=== PATIENT | male | born 1970 | race Caucasian/White ===

== ENCOUNTER 2020-11-21 13:27 | Emergency (ER) | payer BC, OTHER ==
[2020-11-21 13:33] VITALS: TEMP 97.9
--- NOTE | 2020-11-21 14:20 | XR ---
EXAMINATION TYPE: XR chest 2V DATE OF EXAM: 11/21/2020 COMPARISON: 05/12/12 HISTORY: Chest pain TECHNIQUE: Frontal and lateral views of the chest are obtained. FINDINGS: There is no focal air space opacity. No evidence for pneumothorax. No pleural effusion. The cardiac silhouette size is within normal limits. The osseous structures are grossly intact. IMPRESSION: 1. No acute cardiopulmonary process.
[2020-11-21 14:22] LABS: Basophils % (A) 0 %; Eosinophils % (A) 0 %; HCT 47.1 % (39.0-53.0); HGB 15.5 gm/dL (13.0-17.5); Lymphocytes # (A) 1.5 k/uL (1.0-4.8); Lymphocytes % (A) 18 %; MCH 29.2 pg (25.0-35.0); MCHC 32.9 g/dL (31.0-37.0); MCV 88.8 fL (80.0-100.0); Mean Platelet Volume 6.1; Monocytes # (A) 0.4 k/uL (0-1.0); Monocytes % (A) 5 %; Neutrophils # (A) 6.1 k/uL (1.3-7.7); Neutrophils % (A) 75 %; Platelet Count 242 k/uL (150-450); RBC 5.31 m/uL (4.30-5.90); RDW 13.3 % (11.5-15.5); WBC 8.1 k/uL (3.8-10.6)
[2020-11-21 14:32] LABS: Albumin 4.5 g/dL (3.5-5.0); Calcium 9.8 mg/dL (8.4-10.2); Magnesium 1.8 mg/dL (1.6-2.3); Total Bilirubin 0.9 mg/dL (0.2-1.3); Total Protein 7.6 g/dL (6.3-8.2)
[2020-11-21 14:37] LABS: INR 1.2 (<1.2); Partial Thromboplastin Time 25.1 sec (22.0-30.0); Prothrombin Time 12.2 sec (9.0-12.0)
--- NOTE | 2020-11-21 14:49 | ED ---
Weakness HPI <Arnulfo Cortes - Last Filed: 11/21/20 16:50> - General Source: patient Mode of arrival: ambulatory Limitations: no limitations <Isha Mendes - Last Filed: 12/01/20 07:02> - General Chief complaint: Weakness Stated complaint: tinlgling in legs and arms Time Seen by Provider: 11/21/20 13:30 - History of Present Illness Initial comments: Patient is a 50-year-old male with past history of PE/DVT on Anticoagulation who presents to the emergency department with multiple complaints. Patient states that he doesn't feel himself. States he's had increased numbness and tingling in his bilateral hands and feet. Symptoms started approximately 8 days ago after he received the incident Bharath X seen. States he's had diffuse muscle aches and decreased energy. He denies any shortness of breath. Admits to nausea without vomiting. No abdominal pain. No chest pain. Denies headaches. No weakness in his arms or legs. No other alleviating, Perceptin or modifying factors (Isha Mendes) - Related Data Home Medications Medication Instructions Recorded Confirmed Levothyroxine Sodium [Synthroid] 100 mcg PO DAILY 09/21/14 11/21/20 Melatonin 5 mg PO HS PRN 11/21/20 11/21/20 Vitamin C(Unknown) 1 tab PO DAILY 11/21/20 11/21/20 Vitamin D3(Unknown) 1 tab PO DAILY 11/21/20 11/21/20 Previous Rx's Medication Instructions Recorded Rivaroxaban [Xarelto] 20 mg PO DAILY #30 tab 09/25/14 ALPRAZolam [Xanax] 0.25 mg PO HS PRN 2 Days #2 tab 11/21/20 Allergies Allergy/AdvReac Type Severity Reaction Status Date / Time Penicillins Allergy Rash/Hives Verified 11/21/20 14:38 methocarbamol [From Robaxin] AdvReac INSOMNIA Verified 11/21/20 14:38 Review of Systems ROS Other: All systems not noted in ROS Statement are negative. <Arnulfo Cortes - Last Filed: 11/21/20 16:50> ROS Other: All systems not noted in ROS Statement are negative. <Isha Mendes - Last Filed: 12/01/20 07:02> ROS Statement: Those systems with pertinent positive or pertinent negative responses have been documented in the HPI. Past Medical History Past Medical History: Osteoarthritis (OA), Pneumonia, Thyroid Disorder Additional Past Medical History / Comment(s): back ruptured disc, sciatica pains, 2-20-15 PE, LT LEG DVT, hypothyroidism, obesity, osteoarthritis, obesity, postphlebitic syndrome in the left lower extremity, COVID 19 08/2020. History of Any Multi-Drug Resistant Organisms: None Reported Past Surgical History: Orthopedic Surgery Additional Past Surgical History / Comment(s): left knee LT MENISCUS SX 2011, right shoulder REPAIR OF A TEAR Past Anesthesia/Blood Transfusion Reactions: No Reported Reaction Past Psychological History: No Psychological Hx Reported Smoking Status: Never smoker Past Alcohol Use History: None Reported Past Drug Use History: None Reported - Past Family History Father Family Medical History: Cancer Additional Family Medical History / Comment(s): LUNG/BONE CA Mother Family Medical History: Hypertension <Isha Mendes - Last Filed: 12/01/20 07:02> General Exam Limitations: no limitations General appearance: alert, in no apparent distress Head exam: Present: atraumatic, normocephalic, normal inspection Eye exam: Present: normal appearance, PERRL, EOMI. Absent: scleral icterus, conjunctival injection, periorbital swelling ENT exam: Present: normal exam, mucous membranes moist Neck exam: Present: normal inspection. Absent: tenderness, meningismus, lymphadenopathy Respiratory exam: Present: normal lung sounds bilaterally. Absent: respiratory distress, wheezes, rales, rhonchi, stridor Cardiovascular Exam: Present: normal rhythm, tachycardia, normal heart sounds. Absent: systolic murmur, diastolic murmur, rubs, gallop, clicks GI/Abdominal exam: Present: soft, normal bowel sounds. Absent: distended, tenderness, guarding, rebound, rigid Extremities exam: Present: normal inspection, full ROM, normal capillary refill. Absent: tenderness, pedal edema, joint swelling, calf tenderness Back exam: Present: normal inspection Neurological exam: Present: alert, oriented X3, CN II-XII intact Psychiatric exam: Present: normal affect, normal mood Skin exam: Present: warm, dry, intact, normal color. Absent: rash <Isha Mendes - Last Filed: 12/01/20 07:02> Course Vital Signs 11/21/20 11/21/20 11/21/20 13:29 14:03 15:15 Temperature 97.9 F 97.9 F Pulse Rate 104 H 81 Respiratory 18 16 16 Rate Blood Pressure 134/91 144/93 O2 Sat by Pulse 97 97 Oximetry 11/21/20 16:49 Temperature Pulse Rate 74 Respiratory 18 Rate Blood Pressure 125/73 O2 Sat by Pulse 94 L Oximetry EKG Findings - EKG Comments: EKG Findings:: EKG demonstrates normal sinus rhythm with a ventricular rate of 93. GA interval 164. QRS 88. QTC of 447. No acute ST segment elevations or depressions concerning for ischemic changes <Isha Mendes - Last Filed: 12/01/20 07:02> Medical Decision Making - Lab Data Result diagrams: 11/21/20 14:04 11/21/20 14:04 <Arnulfo Cortes - Last Filed: 11/21/20 16:50> - Lab Data Result diagrams: 11/21/20 14:04 11/21/20 14:04 <Isha Mendes - Last Filed: 12/01/20 07:02> - Medical Decision Making Patient care is signed out to me by previous shift physician Dr. Arredondo. Briefly, patient is a 50-year-old male presents today with feelings of decreased exercise tolerance, shakiness and poor appetite. Patient states that his symptoms remind him of when he got Covid earlier this year. He did receive vaccination approximately 8 days ago. Vital signs his blood labs are unremarkable. Labs. Be baseline. He is evaluated bedside physical examination is benign. Plan at sign out was to follow-up with pending urine study and Covid test.Urinalysis shows 2+ ketones rotavirus is negative. There is concern that perhaps patient's symptoms are from dehydration is told to hydrate himself. Patient also requesting some anxiolytic medication. Is given prescription for 2 pills of Xanax. PRN anxiety (Arnulfo Cortes) Upon arrival the patient's placed into room 16. A thorough history and physical exam is performed. Laboratory studies were conducted. Chest x-rays performed. Patient has no calf pain and swelling. Laboratory studies are reviewed. INR 1.2. D-dimer 0.28. Creatinine 1.27. CK 218. Chest x-ray demonstrates no acute process. Patient does have normalization of his heart rate without any intervention. Discuss results with the patient. We will send a Covid swab and urinalysis. Currently waiting studies at this time. Patient will be signed out to Dr. Cotres. (Isha Mendes) - Lab Data Lab Results 11/21/20 11/21/20 11/21/20 Range/Units 14:04 14:04 14:04 WBC 8.1 (3.8-10.6) k/uL RBC 5.31 (4.30-5.90) m/uL Hgb 15.5 (13.0-17.5) gm/dL Hct 47.1 (39.0-53.0) % MCV 88.8 (80.0-100.0) fL MCH 29.2 (25.0-35.0) pg MCHC 32.9 (31.0-37.0) g/dL RDW 13.3 (11.5-15.5) % Plt Count 242 (150-450) k/uL MPV 6.1 Neutrophils % 75 % Lymphocytes % 18 % Monocytes % 5 % Eosinophils % 0 % Basophils % 0 % Neutrophils # 6.1 (1.3-7.7) k/uL Lymphocytes # 1.5 (1.0-4.8) k/uL Monocytes # 0.4 (0-1.0) k/uL Eosinophils # 0.0 (0-0.7) k/uL Basophils # 0.0 (0-0.2) k/uL PT 12.2 H (9.0-12.0) sec INR 1.2 H (<1.2) APTT 25.1 (22.0-30.0) sec D-Dimer 0.28 (<0.60) mg/L FEU Sodium 135 L (137-145) mmol/L Potassium 4.0 (3.5-5.1) mmol/L Chloride 102 (98-107) mmol/L Carbon Dioxide 26 (22-30) mmol/L Anion Gap 7 mmol/L BUN 13 (9-20) mg/dL Creatinine 1.27 H (0.66-1.25) mg/dL Est GFR (CKD-EPI)AfAm 76 (>60 ml/min/1.73 sqM) Est GFR (CKD-EPI)NonAf 66 (>60 ml/min/1.73 sqM) Glucose 95 (74-99) mg/dL Plasma Lactic Acid Leonel (0.7-2.0) mmol/L Calcium 9.8 (8.4-10.2) mg/dL Magnesium 1.8 (1.6-2.3) mg/dL Total Bilirubin 0.9 (0.2-1.3) mg/dL AST 34 (17-59) U/L ALT 22 (4-49) U/L Alkaline Phosphatase 67 (38-126) U/L Creatine Kinase 218 H (55-170) U/L Troponin I (0.000-0.034) ng/mL NT-Pro-B Natriuret Pep pg/mL Total Protein 7.6 (6.3-8.2) g/dL Albumin 4.5 (3.5-5.0) g/dL TSH 0.853 (0.465-4.680) mIU/L Urine Color Urine Appearance (Clear) Urine pH (5.0-8.0) Ur Specific [place] (1.001-1.035) Urine Protein (Negative) Urine Glucose (UA) (Negative) Urine Ketones (Negative) Urine Blood (Negative) Urine Nitrite (Negative) Urine Bilirubin (Negative) Urine Urobilinogen (<2.0) mg/dL Ur Leukocyte Esterase (Negative) Urine RBC (0-5) /hpf Urine WBC (0-5) /hpf Hyaline Casts (0-2) /lpf Urine Mucus (None) /hpf Coronavirus (PCR) (Not Detectd) 11/21/20 11/21/20 11/21/20 Range/Units 14:04 14:04 14:04 WBC (3.8-10.6) k/uL RBC (4.30-5.90) m/uL Hgb (13.0-17.5) gm/dL Hct (39.0-53.0) % MCV (80.0-100.0) fL MCH (25.0-35.0) pg MCHC (31.0-37.0) g/dL RDW (11.5-15.5) % Plt Count (150-450) k/uL MPV Neutrophils % % Lymphocytes % % Monocytes % % Eosinophils % % Basophils % % Neutrophils # (1.3-7.7) k/uL Lymphocytes # (1.0-4.8) k/uL Monocytes # (0-1.0) k/uL Eosinophils # (0-0.7) k/uL Basophils # (0-0.2) k/uL PT (9.0-12.0) sec INR (<1.2) APTT (22.0-30.0) sec D-Dimer (<0.60) mg/L FEU Sodium (137-145) mmol/L Potassium (3.5-5.1) mmol/L Chloride (98-107) mmol/L Carbon Dioxide (22-30) mmol/L Anion Gap mmol/L BUN (9-20) mg/dL Creatinine (0.66-1.25) mg/dL Est GFR (CKD-EPI)AfAm (>60 ml/min/1.73 sqM) Est GFR (CKD-EPI)NonAf (>60 ml/min/1.73 sqM) Glucose (74-99) mg/dL Plasma Lactic Acid Leonel 1.1 (0.7-2.0) mmol/L Calcium (8.4-10.2) mg/dL Magnesium (1.6-2.3) mg/dL Total Bilirubin (0.2-1.3) mg/dL AST (17-59) U/L ALT (4-49) U/L Alkaline Phosphatase (38-126) U/L Creatine Kinase (55-170) U/L Troponin I <0.012 (0.000-0.034) ng/mL NT-Pro-B Natriuret Pep 22 pg/mL Total Protein (6.3-8.2) g/dL Albumin (3.5-5.0) g/dL TSH (0.465-4.680) mIU/L Urine Color Urine Appearance (Clear) Urine pH (5.0-8.0) Ur Specific [place] (1.001-1.035) Urine Protein (Negative) Urine Glucose (UA) (Negative) Urine Ketones (Negative) Urine Blood (Negative) Urine Nitrite (Negative) Urine Bilirubin (Negative) Urine Urobilinogen (<2.0) mg/dL Ur Leukocyte Esterase (Negative) Urine RBC (0-5) /hpf Urine WBC (0-5) /hpf Hyaline Casts (0-2) /lpf Urine Mucus (None) /hpf Coronavirus (PCR) (Not Detectd) 11/21/20 11/21/20 Range/Units 15:11 15:11 WBC (3.8-10.6) k/uL RBC (4.30-5.90) m/uL Hgb (13.0-17.5) gm/dL Hct (39.0-53.0) % MCV (80.0-100.0) fL MCH (25.0-35.0) pg MCHC (31.0-37.0) g/dL RDW (11.5-15.5) % Plt Count (150-450) k/uL MPV Neutrophils % % Lymphocytes % % Monocytes % % Eosinophils % % Basophils % % Neutrophils # (1.3-7.7) k/uL Lymphocytes # (1.0-4.8) k/uL Monocytes # (0-1.0) k/uL Eosinophils # (0-0.7) k/uL Basophils # (0-0.2) k/uL PT (9.0-12.0) sec INR (<1.2) APTT (22.0-30.0) sec D-Dimer (<0.60) mg/L FEU Sodium (137-145) mmol/L Potassium (3.5-5.1) mmol/L Chloride (98-107) mmol/L Carbon Dioxide (22-30) mmol/L Anion Gap mmol/L BUN (9-20) mg/dL Creatinine (0.66-1.25) mg/dL Est GFR (CKD-EPI)AfAm (>60 ml/min/1.73 sqM) Est GFR (CKD-EPI)NonAf (>60 ml/min/1.73 sqM) Glucose (74-99) mg/dL Plasma Lactic Acid Leonel (0.7-2.0) mmol/L Calcium (8.4-10.2) mg/dL Magnesium (1.6-2.3) mg/dL Total Bilirubin (0.2-1.3) mg/dL AST (17-59) U/L ALT (4-49) U/L Alkaline Phosphatase (38-126) U/L Creatine Kinase (55-170) U/L Troponin I (0.000-0.034) ng/mL NT-Pro-B Natriuret Pep pg/mL Total Protein (6.3-8.2) g/dL Albumin (3.5-5.0) g/dL TSH (0.465-4.680) mIU/L Urine Color Yellow Urine Appearance Clear (Clear) Urine pH 6.0 (5.0-8.0) Ur Specific [place] 1.033 (1.001-1.035) Urine Protein 1+ H (Negative) Urine Glucose (UA) Negative (Negative) Urine Ketones 2+ H (Negative) Urine Blood Negative (Negative) Urine Nitrite Negative (Negative) Urine Bilirubin Negative (Negative) Urine Urobilinogen <2.0 (<2.0) mg/dL Ur Leukocyte Esterase Negative (Negative) Urine RBC 2 (0-5) /hpf Urine WBC 1 (0-5) /hpf Hyaline Casts 1 (0-2) /lpf Urine Mucus Few H (None) /hpf Coronavirus (PCR) Not Detected (Not Detectd) Disposition Is patient prescribed a controlled substance at d/c from ED?: Yes If prescribed controlled substance>3 days was MAPS reviewed?: Prescribed <3 Days Time of Disposition: 16:53 <Arnulfo Cortes - Last Filed: 11/21/20 16:50> Is patient prescribed a controlled substance at d/c from ED?: No <Isha Mendes - Last Filed: 12/01/20 07:02> Clinical Impression: Myalgia after COVID-19 vaccination, Malaise and fatigue Disposition: HOME SELF-CARE Condition: Stable Instructions (If sedation given, give patient instructions): Fatigue (ED) Additional Instructions: Please follow up with Dr. Kim for further testing. Return to the ED for any new or worsening symptoms. Prescriptions: ALPRAZolam [Xanax] 0.25 mg PO HS PRN 2 Days #2 tab PRN Reason: Anxiety Referrals: Sean Kim MD [Primary Care Provider] - 1-2 days
[2020-11-21 16:25] LABS: Appearance,Urine Clear (Clear); Bilirubin,Urine Negative (Negative); Blood,Urine Negative (Negative); Color,Urine Yellow; Glucose,Urine (UA) Negative (Negative); Hyaline Casts,Urine 1 /lpf (0-2); Ketones,Urine 2+ (Negative); Leukocyte Esterase,Urine Negative (Negative); Mucus,Urine Few /hpf; Nitrite,Urine Negative (Negative); Protein,Urine 1+ (Negative); RBC,Urine 2 /hpf (0-5); Specific Gravity,Urine 1.033 (1.001-1.035); Urobilinogen,Urine <2.0 mg/dL (<2.0); WBC,Urine 1 /hpf (0-5)
[2020-11-21 16:52] VITALS: BP 125/73; PULSE 74; RESP 18
== END 2020-11-21 16:55 | disposition home or self-care (01) ==
LOC: EC 13:27
DX: M79.10 Myalgia, unspecified site (principal); R53.81 Other malaise; R53.83 Other fatigue; T50.B95A Adverse effect of other viral vaccines, initial encounter; E03.9 Hypothyroidism, unspecified; E66.9 Obesity, unspecified; Z68.39 Body mass index [BMI] 39.0-39.9, adult; Z79.890 Hormone replacement therapy; Z88.0 Allergy status to penicillin; Z88.8 Allergy status to other drugs, medicaments and biological substances; Z86.711 Personal history of pulmonary embolism; Z86.718 Personal history of other venous thrombosis and embolism
CPT/HCPCS: 36415; 71046; 80053; 81001; 82550; 83605; 83735; 83880; 84443; 84484; 85025; 85379; 85610; 85730; 87635; 93005; 99285

== ENCOUNTER → 2020-11-22 | Outpatient (CLI) | payer BC ==
--- NOTE | 2020-11-22 15:49 | XR ---
EXAMINATION TYPE: XR abdomen complete w decub DATE OF EXAM: 11/22/2020 HISTORY: Pain. Technique: 4 views of the abdomen are submitted. Comparison: None. Findings: There is no convincing evidence of pneumoperitoneum. The Bowel gas pattern is nonspecific and nonobstructive. No sizable air-fluid levels are seen. No mass effects are noted. No renal calcifications are identified. IMPRESSION: 1. Nonspecific nonobstructive bowel gas pattern
== END | disposition home or self-care (01) ==
LOC: RADXRMAIN 15:05
PROVIDERS: ATTEND Nurse Practitioner
DX: R10.9 Unspecified abdominal pain (principal)
CPT/HCPCS: 74021

== ENCOUNTER → 2020-11-27 | Outpatient (CLI) | payer BC ==
--- NOTE | 2020-11-27 13:56 | XR ---
EXAMINATION TYPE: XR chest 2V DATE OF EXAM: 11/27/2020 COMPARISON: Chest x-ray 6 days ago HISTORY: Edema and dyspnea. TECHNIQUE: Frontal and lateral views of the chest are obtained. FINDINGS: There is no suspicious new focal air space opacity, pleural effusion, or pneumothorax seen . The cardiac silhouette size is stable and within normal limits. The osseous structures are intac t. IMPRESSION: No acute process. No significant change from prior.
--- NOTE | 2020-11-27 14:39 | US ---
EXAMINATION TYPE: US venous doppler duplex LE BI DATE OF EXAM: 11/27/2020 2:30 PM COMPARISON: For 1116 CLINICAL HISTORY: R60 edema,R06.09 Dyspenia. Edema hx of dvt on blood thinners. SIDE PERFORMED: Bilateral TECHNIQUE: The lower extremity deep venous system is examined utilizing real time linear array sonog anant with graded compression, doppler sonography and color-flow sonography. VESSELS IMAGED: Common Femoral Vein Deep Femoral Vein Greater Saphenous Vein * Femoral Vein Popliteal Vein Small Saphenous Vein * Proximal Calf Veins (* superficial vessels) Right Leg: Negative for DVT Left Leg: Negative for DVT IMPRESSION: 1. No diagnostic evidence of acute DVT.
== END | disposition home or self-care (01) ==
LOC: RADUSWWP 13:31
PROVIDERS: ATTEND Family Medicine
DX: R60.0 Localized edema (principal); R06.09 Other forms of dyspnea
CPT/HCPCS: 71046; 85379; 85652; 86140; 93970

== ENCOUNTER → 2020-11-27 | Outpatient (CLI) | payer BC ==
--- NOTE | 2020-11-27 16:54 | CT ---
EXAMINATION TYPE: CT angio chest DATE OF EXAM: 11/27/2020 COMPARISON: 11/10/2015 HISTORY: SOB. hx of PE. CT DLP: 528 mGycm Automated exposure control for dose reduction was used. CONTRAST: Performed with IV Contrast, patient injected with 70cc mL of Isovue 370. Images were obtained from the thoracic inlet to the diaphragm with IV contrast. There are 3-D post pr ocessed images. The lungs are clear of infiltrate. There is no pleural effusion. Heart size is normal. There is no pe ricardial effusion. There is no mediastinal adenopathy. There are no hilar masses. There is normal contrast opacification of the pulmonary arteries. There are no filling defects. Thoracic aorta is intact. There is no aneur ysm or dissection. The thoracic spine is intact. There is no compression fracture. Sternum is intact. Upper abdominal so ft tissues appear normal. IMPRESSION: Negative exam. No evidence of pulmonary embolism.
== END | disposition home or self-care (01) ==
LOC: RADCTMAIN 15:54
PROVIDERS: ATTEND Family Medicine
DX: R06.09 Other forms of dyspnea (principal)
CPT/HCPCS: 71275; Q9967

== ENCOUNTER 2022-05-03 22:37 | Emergency (ER) | payer BC ==
[2022-05-03 22:42] VITALS: RESP 18; TEMP 97.9
--- NOTE | 2022-05-03 22:45 | ED ---
General Adult HPI - General Chief complaint: ENT Stated complaint: Food stuck, JOELLE Time Seen by Provider: 05/03/22 22:43 Source: patient Mode of arrival: wheelchair Limitations: no limitations - History of Present Illness Initial comments: Patient presents to the ED with his for evaluation. Patient states that he was eating some tortilla chips and phan dip about an hour ago when he felt it get stuck in his throat. Patient states that he has had a throat foreign body sensation since then. Patient states that he feels that the food bolus has mo alfonso a few times. Patient states that he forced himself to vomit by sticking a toothbrush into his throat, and he states that he vomited up what ate earlier today. Patient also states that he has been drinking lots of water without any difficulty, but his throat foreign body sensation persists. Patient admits to having mild difficulty breathing. Patient denies history of esophageal food impaction esophageal strictures/pathology. Patient denies fever or chills, chest pain, pleuritic pain, cough or cold symptoms, palpitations, dizziness, abdominal pain, nausea, or any other symptoms or complaints. - Related Data Home Medications Medication Instructions Recorded Confirmed Levothyroxine Sodium [Synthroid] 100 mcg PO DAILY 09/21/14 11/21/20 Melatonin 5 mg PO HS PRN 11/21/20 11/21/20 Vitamin C(Unknown) 1 tab PO DAILY 11/21/20 11/21/20 Vitamin D3(Unknown) 1 tab PO DAILY 11/21/20 11/21/20 Previous Rx's Medication Instructions Recorded Rivaroxaban [Xarelto] 20 mg PO DAILY #30 tab 09/25/14 ALPRAZolam [Xanax] 0.25 mg PO HS PRN 2 Days #2 tab 11/21/20 Allergies Allergy/AdvReac Type Severity Reaction Status Date / Time Penicillins Allergy Rash/Hives Verified 11/21/20 14:38 methocarbamol [From Robaxin] AdvReac INSOMNIA Verified 11/21/20 14:38 Review of Systems ROS Statement: Those systems with pertinent positive or pertinent negative responses have been documented in the HPI. ROS Other: All systems not noted in ROS Statement are negative. Past Medical History Past Medical History: Osteoarthritis (OA), Pneumonia, Pulmonary Embolus (PE), Thyroid Disorder Additional Past Medical History / Comment(s): back ruptured disc, sciatica pains, 2-20-15 PE, LT LEG DVT, obesity, postphlebitic syndrome in the left lower extremity, COVID 19 08/2020. History of Any Multi-Drug Resistant Organisms: None Reported Past Surgical History: Orthopedic Surgery Additional Past Surgical History / Comment(s): left knee LT MENISCUS SX 2011, right shoulder REPAIR OF A TEAR Past Anesthesia/Blood Transfusion Reactions: No Reported Reaction Past Psychological History: No Psychological Hx Reported Smoking Status: Never smoker Past Alcohol Use History: None Reported Past Drug Use History: None Reported - Past Family History Father Family Medical History: Cancer Additional Family Medical History / Comment(s): LUNG/BONE CA Mother Family Medical History: Hypertension General Exam Limitations: no limitations General appearance: alert, in no apparent distress Head exam: Present: atraumatic, normocephalic Eye exam: Present: normal appearance ENT exam: Present: normal oropharynx, mucous membranes moist Neck exam: Present: other (Trachea is in midline) Respiratory exam: Present: normal lung sounds bilaterally. Absent: respiratory distress, wheezes, rales, rhonchi, stridor Cardiovascular Exam: Present: regular rate, normal rhythm, normal heart sounds, other (Normal radial pulses bilaterally) GI/Abdominal exam: Present: soft. Absent: distended, tenderness, guarding Neurological exam: Present: alert, oriented X3. Absent: motor sensory deficit Psychiatric exam: Present: normal affect, normal mood Skin exam: Present: warm, dry, intact, normal color Course Vital Signs 05/03/22 22:38 Temperature 97.9 F Pulse Rate 110 H Respiratory 18 Rate Blood Pressure 155/89 O2 Sat by Pulse 99 Oximetry - Reevaluation(s) Reevaluation #1: 05/04/22 00:30 Patient states that his throat foreign body sensation has improved somewhat with the GI cocktail that he was given in the ED, but he still states that he feels that there is something stuck in his throat. Patient states that he was able to drink plenty of water prior to coming to the ED without any difficulty, and he states that he was able to take down the GI cocktail without any difficulty. Patient is breathing comfortably in the ED with a normal room air oxygen s aturation. Patient's chest x-ray is unremarkable. I have discussed with the patient the option to possibly transfer him to another hospital with GI coverage (we do not have GI coverage here today), but patient declines at this time. Patient also declines CT imaging at this time. Patient states that he wishes to go home, and he states he will return if his symptoms worsen. Patient was also advised to follow up with GI as an outpatient. Patient was counseled about esophageal food impactions, and he was clearly explained return and follow-up instructions. Patient feels comfortable with this plan. Medical Decision Making - Radiology Data Chest x-ray: Normal chest. No change. Disposition Clinical Impression: Food impaction of esophagus Disposition: HOME SELF-CARE Condition: Stable Instructions (If sedation given, give patient instructions): Esophageal Foreign Body (ED), Food Impaction (ED) Additional Instructions: Return to the ER immediately should you develop shortness of breath/trouble breathing, trouble swallowing fluids, worsening pain, vomiting, feeling dizzy or faint, or new or worsening symptoms. Follow up closely with your primary care provider, as well as gastroenterology. Is patient prescribed a controlled substance at d/c from ED?: No Referrals: Sean Kim MD [Primary Care Provider] - 1-2 days Concha Mejia MD [STAFF PHYSICIAN] - 1-2 days Time of Disposition: 00:36
[2022-05-03] MEDS ORDERED: MAG HYDROX/AL HYDROX/SIMETH 30 ML, HYOSCYAMINE ELIXIR 10 ML, LIDOCAINE VISCOUS 2% 10 ML PO STA ×3 (22:51)
--- NOTE | 2022-05-03 23:25 | XR ---
EXAMINATION TYPE: XR chest 2V DATE OF EXAM: 05/03/2022 COMPARISON: 05/12/2012 HISTORY: Esophageal obstruction TECHNIQUE: FINDINGS: Heart and mediastinum are normal. Lungs are clear. Diaphragm is normal. Bony thorax is inta ct. There are chest leads. IMPRESSION: Normal chest. No change.
[2022-05-04 01:00] VITALS: BP 150/113; PULSE 85
== END 2022-05-04 01:00 | disposition home or self-care (01) ==
LOC: EC 22:37
DX: T18.128A Food in esophagus causing other injury, initial encounter (principal); Z79.01 Long term (current) use of anticoagulants; Z88.0 Allergy status to penicillin; Z88.8 Allergy status to other drugs, medicaments and biological substances; Z86.711 Personal history of pulmonary embolism; Z86.718 Personal history of other venous thrombosis and embolism; X58.XXXA Exposure to other specified factors, initial encounter
CPT/HCPCS: 71046; 99283

== ENCOUNTER → 2023-05-14 | Outpatient (CLI) | payer BC ==
--- NOTE | 2023-05-14 10:41 | US ---
EXAMINATION TYPE: US abdomen complete DATE OF EXAM: 05/14/2023 COMPARISON: US Abd 06/04/22 CLINICAL INDICATION: Male, 52 years old with history of R74.01 ELEVATED LFT'S; Hx of fatty liver dise ase; hx of recent antibiotic use TECHNIQUE: Multiple sonographic images of the abdomen are obtained. FINDINGS: EXAM MEASUREMENTS: Liver Length: 13.5 cm Gallbladder Wall: 0.24 cm CBD: 0.34 cm Spleen: 11.8 x 3.9 cm Right Kidney: 11.4 x 5.7 x 4.7 cm Left Kidney: 12.4 x 5.4 x 5.0 cm SMALL ENGINE SPECIALIST NOTES: Pancreas: Tail obscured by overlying bowel gas Liver: Increase in echogenicity Gallbladder: wnl Evidence for sonographic Wolfe's sign: no CBD: wnl Spleen: wnl Right Kidney: wnl Left Kidney: wnl Upper IVC: wnl Abd Aorta: wnl The intrahepatic portion of the IVC and proximal abdominal aorta are within normal limits. There is no evidence of cholelithiasis. Common bile duct is unremarkable. The visualized portions of the [place] are homogenous. The spleen is unremarkable. Kidneys are symmetric and free of hydronephrosis. No renal lesions are seen. IMPRESSION: Mild hepatic steatosis suggested.
== END | disposition home or self-care (01) ==
LOC: RADUSWWP 10:01
PROVIDERS: ATTEND Family Medicine
DX: R74.01 Elevation of levels of liver transaminase levels (principal)
CPT/HCPCS: 76700

== ENCOUNTER 2023-08-20 08:58 | Emergency (ER) | payer BC ==
[2023-08-20 10:31] LABS: Basophils % (A) 1 %; Eosinophils # (A) 0.1 k/uL (0-0.7); Eosinophils % (A) 1 %; HCT 43.7 % (39.0-53.0); Lymphocytes # (A) 1.2 k/uL (1.0-4.8); Lymphocytes % (A) 21 %; MCHC 34.2 g/dL (31.0-37.0); MCV 87.7 fL (80.0-100.0); Mean Platelet Volume 6.8; Monocytes # (A) 0.3 k/uL (0-1.0); Monocytes % (A) 5 %; Neutrophils % (A) 70 %; Platelet Count 167 k/uL (150-450); RBC 4.98 m/uL (4.30-5.90); RDW 12.6 % (11.5-15.5); WBC 5.8 k/uL (3.8-10.6)
[2023-08-20 10:38] LABS: ALT 28 U/L (4-49); AST 30 U/L (17-59); African American GFR (CKD) >90 (>60 ml/min/1.73 sqM); Alkaline Phosphatase 60 U/L (38-126); Amylase 71 U/L (30-110); Anion Gap 4 mmol/L; Blood Urea Nitrogen 15 mg/dL (9-20); Calcium 9.3 mg/dL (8.4-10.2); Carbon Dioxide 26 mmol/L (22-30); Chloride 107 mmol/L (98-107); Creatine Kinase 97 U/L (55-170); Glucose 97 mg/dL (74-99); Lipase 96 U/L (23-300); Non-African American GFR(CKD) 78 (>60 ml/min/1.73 sqM); Potassium 4.4 mmol/L (3.5-5.1); Sodium 137 mmol/L (137-145); Total Bilirubin 0.8 mg/dL (0.2-1.3); Total Protein 6.8 g/dL (6.3-8.2)
--- NOTE | 2023-08-20 10:39 | ED ---
General Adult HPI - General Chief complaint: Recheck/Abnormal Lab/Rx Stated complaint: Jaw pain & BodyAches-[facility]+ Time Seen by Provider: 08/20/23 09:26 Source: patient, RN notes reviewed Mode of arrival: ambulatory Limitations: no limitations - History of Present Illness Initial comments: 53-year-old male presents emergency Department with complaints of extreme fatigue, neck swelling, jaw pain. Patient states this all started several months ago in which he didn't feel well and they thought he had prostatitis. He states he was started on Bactrim but shortly after had blood work showing that he has significant transaminitis. Hepatitis probably from the current infection or possible antibiotic reaction. Patient states shortly after he started fe eling better but in the June he started having again fatigue, neck swelling or joint pain, jaw pain. Patient states that he was seen at [facility] this week and was diagnosed with mononucleosis. Patient states she still feels like something else is wrong he's been having some weight loss extreme night sweats he states that he feels like his mandible is shrinking that his bite has changes developed an overbite. He is having frequent headaches which is not usual for this patient. Denies any change in bowel habits. He states that a prior colonoscopy. Denies any fever denies any other sick contacts. Denies chest pain or shortness breath. Occasionally has back pain but nothing unusual. - Related Data Home Medications Medication Instructions Recorded Confirmed Vitamin D3(Unknown) 1 tab PO DAILY 11/21/20 08/20/23 Calcium/Magnesium/Zinc 1 tab PO DAILY 08/20/23 08/20/23 Cyclobenzaprine [Flexeril] 10 mg PO DAILY PRN 08/20/23 08/20/23 Levothyroxine Sodium 150 mcg PO DAILY 08/20/23 08/20/23 [place]-3/Dha/Epa/Fish Oil [Fish Oil 1 cap PO DAILY 08/20/23 08/20/23 1,000 mg Softgel] Rivaroxaban [Xarelto] 20 mg PO HS 08/20/23 Allergies Allergy/AdvReac Type Severity Reaction Status Date / Time amoxicillin Allergy Rash/Hives Verified 08/20/23 12:17 all over Penicillins Allergy Rash/Hives Verified 08/20/23 12:17 all over metaxalone [From Skelaxin] AdvReac Insomnia Verified 08/20/23 12:17 methocarbamol [From Robaxin] AdvReac Insomnia Verified 08/20/23 12:17 Review of Systems ROS Statement: Those systems with pertinent positive or pertinent negative responses have been documented in the HPI. ROS Other: All systems not noted in ROS Statement are negative. Past Medical History Past Medical History: Osteoarthritis (OA), Pneumonia, Pulmonary Embolus (PE), Thyroid Disorder Additional Past Medical History / Comment(s): back ruptured disc, sciatica pains, 2-20-15 PE, LT LEG DVT, obesity, postphlebitic syndrome in the left lower extremity, COVID 19 08/2020. History of Any Multi-Drug Resistant Organisms: None Reported Past Surgical History: Orthopedic Surgery Additional Past Surgical History / Comment(s): left knee LT MENISCUS SX 2011, right shoulder REPAIR OF A TEAR Past Anesthesia/Blood Transfusion Reactions: No Reported Reaction Past Psychological History: No Psychological Hx Reported Smoking Status: Never smoker Past Alcohol Use History: None Reported Past Drug Use History: Marijuana - Past Family History Father Family Medical History: Cancer Additional Family Medical History / Comment(s): LUNG/BONE CA Mother Family Medical History: Hypertension General Exam Limitations: no limitations General appearance: alert, in no apparent distress Head exam: Present: atraumatic, normocephalic, normal inspection Eye exam: Present: normal appearance, PERRL, EOMI. Absent: scleral icterus, conjunctival injection, periorbital swelling ENT exam: Present: normal oropharynx, mucous membranes moist, TM's normal bilaterally. Absent: normal exam Neck exam: Present: normal inspection, full ROM, lymphadenopathy. Absent: tenderness, meningismus Respiratory exam: Present: normal lung sounds bilaterally. Absent: respiratory distress, wheezes, rales, rhonchi, stridor Cardiovascular Exam: Present: normal rhythm, tachycardia, normal heart sounds. Absent: systolic murmur, diastolic murmur, rubs, gallop, clicks GI/Abdominal exam: Present: soft, normal bowel sounds. Absent: distended, tenderness, guarding, rebound, rigid Course Vital Signs 08/20/23 09:04 Temperature 97.9 F Pulse Rate 110 H Respiratory 20 Rate Blood Pressure 135/69 O2 Sat by Pulse 98 Oximetry Medical Decision Making - Medical Decision Making Was pt. sent in by a medical professional or institution (, PA, MANAGEMENT SUPERVISOR, urgent care, hospital, or senior care...) When possible be specific @ -No Did you speak to anyone other than the patient for history (EMS, parent, family, police, friend...)? What history was obtained from this source @ -No Did you review nursing and triage notes (agree or disagree)? Why? @ -I reviewed and agree with nursing and triage notes Were old charts reviewed (outside hosp., previous admission, EMS record, old EKG, old radiological studies, urgent care reports/EKG's, senior care records)? Report findings @ -No old charts were reviewed Differential Diagnosis (chest pain, altered mental status, abdominal pain women, abdominal pain men, vaginal bleeding, weakness, fever, dyspnea, syncope, headache, dizziness, GI bleed, back pain, seizure, CVA, palpatations, mental health, musculoskeletal)? @ -[Differential Weakness: Hypoglycemia, shock, sepsis, hyponatremia, anemia, infection, WA, ETOH, adverse medicine reaction, overdose, stroke, this is not meant to be an all-inclusive list. EKG interpreted by me (3pts min.). @ -None X-rays interpreted by me (1pt min.). @ -None done CT interpreted by me (1pt min.). @ -CT soft tissue neck showing multiple lymph nodes, no mass U/S interpreted by me (1pt. min.). @ -None done What testing was considered but not performed or refused? (CT, X-rays, U/S, labs)? Why? @ -None What meds were considered but not given or refused? Why? @ -None Did you discuss the management of the patient with other professionals (professionals i.e. , PA, MANAGEMENT SUPERVISOR, lab, RT, psych nurse, group social worker, candy separator enrobing, teacher, department of natural resources officer, lining caser)? Give summary @ -[Dr. Potter who elevated the patient Was smoking cessation discussed for >3mins.? @ -No Was critical care preformed (if so, how long)? @ -No Were there social determinants of health that impacted care today? How? (Homelessness, low income, unemployed, alcoholism, drug addiction, transportation, low edu. Level, literacy, decrease access to med. care, senior living, rehab)? @ -No Was there de-escalation of care discussed even if they declined (Discuss DNR or withdrawal of care, Hospice)? DNR status @ -No What co-morbidities impacted this encounter? (DM, HTN, Smoking, COPD, CAD, Cancer, CVA, ARF, Chemo, Hep., AIDS, mental health diagnosis, sleep apnea, morbid obesity)? @ -None Was patient admitted / discharged? Hospital course, mention meds given and route, prescriptions, significant lab abnormalities, going to OR and other pertinent info. @ -Discharge patient been having ongoing constitutional symptoms including jaw pain, neck swelling, lymph nodes, weight loss. There is no clear cause for this time. I did have the hospitalist noted patient felt patient is stable for outpatient follow-up. ENT appointment was made his information was sent over to oncology. Undiagnosed new problem with uncertain prognosis? @ -No Drug Therapy requiring intensive monitoring for toxicity (Heparin, Nitro, Insulin, Cardizem)? @ -No Were any procedures done? @ -No Diagnosis/symptom? @ -[Lymphadenopathy, mandibular pain, fatigue, night sweats, weight loss Acute, or Chronic, or Acute on Chronic? @ -Acute Uncomplicated (without systemic symptoms) or Complicated (systemic symptoms)? @ -Complicated Side effects of treatment? @ -No Exacerbation, Progression, or Severe Exacerbation? @ -No Poses a threat to life or bodily function? How? (Chest pain, [place], WA, pneumonia, PE, COPD, DKA, ARF, appy, cholecystitis, CVA, Diverticulitis, Homicidal, Suicidal, threat to staff... and all critical care pts) @ -No - Lab Data Result diagrams: 08/20/23 10:12 08/20/23 10:12 Lab Results 08/20/23 08/20/23 08/20/23 Range/Units 10:12 10:12 12:40 WBC 5.8 (3.8-10.6) k/uL RBC 4.98 (4.30-5.90) m/uL Hgb 15.0 (13.0-17.5) gm/dL Hct 43.7 (39.0-53.0) % MCV 87.7 (80.0-100.0) fL MCH 30.0 (25.0-35.0) pg MCHC 34.2 (31.0-37.0) g/dL RDW 12.6 (11.5-15.5) % Plt Count 167 (150-450) k/uL MPV 6.8 Neutrophils % 70 % Lymphocytes % 21 % Monocytes % 5 % Eosinophils % 1 % Basophils % 1 % Neutrophils # 4.0 (1.3-7.7) k/uL Lymphocytes # 1.2 (1.0-4.8) k/uL Monocytes # 0.3 (0-1.0) k/uL Eosinophils # 0.1 (0-0.7) k/uL Basophils # 0.0 (0-0.2) k/uL Sodium 137 (137-145) mmol/L Potassium 4.4 (3.5-5.1) mmol/L Chloride 107 (98-107) mmol/L Carbon Dioxide 26 (22-30) mmol/L Anion Gap 4 mmol/L BUN 15 (9-20) mg/dL Creatinine 1.08 (0.66-1.25) mg/dL Est GFR (CKD-EPI)AfAm >90 (>60 ml/min/1.73 sqM) Est GFR (CKD-EPI)NonAf 78 (>60 ml/min/1.73 sqM) Glucose 97 (74-99) mg/dL Calcium 9.3 (8.4-10.2) mg/dL Total Bilirubin 0.8 (0.2-1.3) mg/dL AST 30 (17-59) U/L ALT 28 (4-49) U/L Alkaline Phosphatase 60 (38-126) U/L Creatine Kinase 97 (55-170) U/L Total Protein 6.8 (6.3-8.2) g/dL Albumin 4.0 (3.5-5.0) g/dL Amylase 71 (30-110) U/L Lipase 96 (23-300) U/L TSH 1.470 (0.465-4.680) mIU/L Urine Color Colorless Urine Appearance Clear (Clear) Urine pH 7.0 (5.0-8.0) Ur Specific [place] 1.042 H (1.001-1.035) Urine Protein Negative (Negative) Urine Glucose (UA) Negative (Negative) Urine Ketones Negative (Negative) Urine Blood Negative (Negative) Urine Nitrite Negative (Negative) Urine Bilirubin Negative (Negative) Urine Urobilinogen <2.0 (<2.0) mg/dL Ur Leukocyte Esterase Negative (Negative) Disposition Clinical Impression: Cervical lymphadenopathy, Weight loss, Night sweats, Fatigue, Mandible pain Disposition: HOME SELF-CARE Condition: Stable Additional Instructions: Please return to the Emergency Department if symptoms worsen or any other concerns. Is patient prescribed a controlled substance at d/c from ED?: No Referrals: Sean Kim MD [Primary Care Provider] - 1-2 days Scooby Oakes [STAFF PHYSICIAN] - 1-2 days (Office will contact you regarding appointment.) Marko August DO [Doctor of Osteopathic Medicine] - 08/24/23 12:30 pm (Please bring any medical records related to current issue, bring ID card and insurance card. ) Time of Disposition: 14:43
[2023-08-20] MEDS ORDERED: SODIUM CHLORIDE 0.9% 2,000 ML IV ONE (11:24)
[2023-08-20] MEDS ORDERED: KETOROLAC 15 MG/ML 1 ML VIAL IVP STA (11:24)
--- NOTE | 2023-08-20 11:30 | CT ---
EXAMINATION TYPE: CT soft tissue neck w con DATE OF EXAM: 08/20/2023 HISTORY: Swelling, mandibular changes, pain, mass COMPARISON: NONE CT DLP: 610.6 mGycm. Automated Exposure Control for Dose Reduction was Utilized. TECHNIQUE: CT scan of the neck is performed with IV Contrast, patient injected with 100 ml mL of Iso otis 300, axial images are obtained, coronal and sagittal reformatted images are reviewed. FINDINGS: Airway: No gross abnormality seen. Parotid/submandibular glands: No gross abnormality seen. Carotid/Vascular Structures: Mild peripheral plaque bilateral carotid bulb level . Osseous Structures: Mild disc space narrowing and spurring C5-C6 and C6-C7 levels. Other: No greater than 1.0 cm neck adenopathy. Prominent but subcentimeter lymph nodes are seen throu ghout the neck bilaterally. The parapharyngeal fat spaces are symmetric and maintained. Nasal septum slightly deviated to right of midline. IMPRESSION: No suspicious mass or adenopathy. No acute findings seen to cause for patient's symptoms of pain.
[2023-08-20 13:00] LABS: Appearance,Urine Clear (Clear); Bilirubin,Urine Negative (Negative); Blood,Urine Negative (Negative); Color,Urine Colorless; Glucose,Urine (UA) Negative (Negative); Ketones,Urine Negative (Negative); Leukocyte Esterase,Urine Negative (Negative); Nitrite,Urine Negative (Negative); Protein,Urine Negative (Negative); Specific Gravity,Urine 1.042 (1.001-1.035); Urobilinogen,Urine <2.0 mg/dL (<2.0)
[2023-08-20 14:58] VITALS: BP 130/65; PULSE 98; RESP 16; TEMP 98.9
[2023-08-20 15:33] LABS: Erythrocyte Sedimentation Rate 8 mm/Hr (0-20)
--- NOTE | 2023-08-20 15:33 | P.CONS ---
History of Present Illness - Reason for Consult Consult date: 08/20/23 Consult from the ED regarding neck and jaw pain, recent mono - History of Present Illness This is a 53-year-old male who presented to the emergency department after calling to try to get into his primary care provider's office Dr. Kim and was told to go to the ER for further evaluation. Patient reports he was just at [facility] on Wednesday and diagnosed with mono as he has been having throat pain along with neck and jaw pain and has been having weight loss over the last few months and was concerned. Patient reports he is not sleeping and having neck and jaw pain that is radiating to his jaw line. Patient underwent CT soft tissue of the neck with contrast which shows no gross abnormalities with mild peripheral plaque in the bilateral carotid bulb level mild disc space narrowing and spurring at the C5-6 and C6-7 and no greater than 1.0 cm neck adenopathy. Prominent but subcentimeter lymph nodes are seen throughout the neck bilaterally and the pharyngeal fat spaces are symmetrically maintained and nasal septum shows a slightly deviated to the right of midline otherwise there is no suspicious mass or adenopathy noted. Discussed further with ED staff and patient to be discharged and follow-up with ENT and primary care provider in the outpatient setting. Review Of Systems: Constitutional: No fever, no chills, no night sweats. Patient reports weight change including weight loss. No weakness, fatigue or lethargy. No daytime sleepiness. EENT: No headache. No blurred vision or double vision, no loss of vision. No loss of Hearing, no ringing in the ears, no dizziness. No nasal drainage or c ongestion. No epistaxis. No sore throat. Lungs: No shortness of breath, cough, no sputum production. No wheezing. Cardiovascular: No chest pain, no lower extremity edema. No palpitations. No paroxysmal nocturnal dyspnea. No orthopnea. No lightheadedness or dizziness. No syncopal episodes. Abdominal: No abdominal pain. No nausea, vomiting. No diarrhea. No constipation. No bloody or tarry stools.. No loss of appetite. Genitourinary: No dysuria, increased frequency, urgency. No urinary retention. Musculoskeletal: Reports generalized myalgias of the neck and back and shoulders and jawline. No muscle weakness, no gait dysfunction, no frequent falls. No back pain. No neck pain. Integumentary: No wounds, no lesions. No rash or pruritus. No unusual bruising. No change in hair or nails. Neurologic: No aphasia. No facial droop. No change in mentation. No head injury. No headache. No paralysis. No paresthesia. Psychiatric: No depression. No anxiety. No mood swings. Endocrine: No abnormal blood sugars. No weight change. No excessive sweating or thirst. No cold intolerance. PHYSICAL EXAMINATION: GENERAL: The patient is alert and oriented x4, Well developed, well nourished. Obese HEENT: Pupils are round and equally reacting to light. EOMI. no scleral icterus. No conjunctival pallor. Normocephalic, atraumatic. No pharyngeal erythema. No thyromegaly. No significant swelling or lymph nodes palpated on exam CARDIOVASCULAR: S1 and S2 muffled PULMONARY: Chest sounds clear to auscultation with no wheezing or rhonchi noted. ABDOMEN: soft. Nontender on exam. obese. non-distended, normoactive bowel sounds. No palpable organomegaly. MUSCULOSKELETAL: No joint swelling or deformity. EXTREMITIES: No cyanosis, clubbing, or pedal edema. NEUROLOGICAL: Gross neurological examination did not reveal any focal deficits. SKIN: No rashes. Assessment: Recently diagnosed mononucleosis on Wednesday at [facility] Neck and jaw pain with no obvious deformities noted on CT, likely secondary to mono History of PE History of thyroid disorder History of left leg DVT Obesity with a BMI of 36.6 Plan: Patient was seen and evaluated by physician and has been instructed and discussed further with the ED doc as patient will not require admission and has been given resources to follow-up with ENT and primary care provider outpatient Patient to continue with NSAIDs including Motrin Encouraged rest and fluids Monitor for fevers and use Motrin and/or Tylenol Patient to follow-up with primary care provider this week. Patient was provided an appointment with Dr. Grande ENT this week as well. The impression and plan of care has been dictated by Melyssa Quigley, nurse practitioner as directed. Dr. Tariq MD I have performed a history and examination and MDM of this patient, discussed the same with the dictator, and agree with the dictator's assessment and plan as written ,documented as a scribe. Based on total visit time, I have performed more than 50% of the visit. Any additional findings or plans will be noted. Past Medical History Past Medical History: Osteoarthritis (OA), Pneumonia, Pulmonary Embolus (PE), Thyroid Disorder Additional Past Medical History / Comment(s): back ruptured disc, sciatica pains, 2-20-15 PE, LT LEG DVT, obesity, postphlebitic syndrome in the left lower extremity, COVID 19 08/2020. History of Any Multi-Drug Resistant Organisms: None Reported Past Surgical History: Orthopedic Surgery Additional Past Surgical History / Comment(s): left knee LT MENISCUS SX 2011, right shoulder REPAIR OF A TEAR Past Anesthesia/Blood Transfusion Reactions: No Reported Reaction Past Psychological History: No Psychological Hx Reported Smoking Status: Never smoker Past Alcohol Use History: None Reported Past Drug Use History: Marijuana - Past Family History Father Family Medical History: Cancer Additional Family Medical History / Comment(s): LUNG/BONE CA Mother Family Medical History: Hypertension Medications and Allergies Home Medications Medication Instructions Recorded Confirmed Type Vitamin D3(Unknown) 1 tab PO DAILY 11/21/20 08/20/23 History Calcium/Magnesium/Zinc 1 tab PO DAILY 08/20/23 08/20/23 History Cyclobenzaprine [Flexeril] 10 mg PO DAILY PRN 08/20/23 08/20/23 History HYDROcodone/APAP 7.5-325MG [[place] 1 tab PO Q6HR PRN 3 Days #12 tab 08/20/23 Rx 7.5-325] Levothyroxine Sodium 150 mcg PO DAILY 08/20/23 08/20/23 History [place]-3/Dha/Epa/Fish Oil [Fish Oil 1 cap PO DAILY 08/20/23 08/20/23 History 1,000 mg Softgel] Rivaroxaban [Xarelto] 20 mg PO HS 08/20/23 History Allergies Allergy/AdvReac Type Severity Reaction Status Date / Time amoxicillin Allergy Rash/Hives Verified 08/20/23 12:17 all over Penicillins Allergy Rash/Hives Verified 08/20/23 12:17 all over metaxalone [From Skelaxin] AdvReac Insomnia Verified 08/20/23 12:17 methocarbamol [From Robaxin] AdvReac Insomnia Verified 08/20/23 12:17 Physical Exam Vitals: Vital Signs Temp Pulse Resp BP Pulse Ox 08/20/23 14:51 98.9 F 98 16 130/65 98 08/20/23 09:04 97.9 F 110 H 20 135/69 98 Intake and Output 08/20/23 08/20/23 08/20/23 06:59 14:59 22:59 Other: Weight 122.47 kg Results CBC & Chem 7: 08/20/23 10:12 08/20/23 10:12 Labs: Abnormal Lab Results - Last 24 Hours (Table) 08/20/23 Range/Units 12:40 Ur Specific [place] 1.042 H (1.001-1.035)
== END 2023-08-20 15:37 | disposition home or self-care (01) ==
LOC: EC 08:58
DX: R59.1 Generalized enlarged lymph nodes (principal); R63.4 Abnormal weight loss; R61 Generalized hyperhidrosis; R53.83 Other fatigue; R68.84 Jaw pain; M19.90 Unspecified osteoarthritis, unspecified site; Z86.711 Personal history of pulmonary embolism; E07.9 Disorder of thyroid, unspecified; F12.90 Cannabis use, unspecified, uncomplicated; Z79.1 Long term (current) use of non-steroidal anti-inflammatories (NSAID); Z79.890 Hormone replacement therapy; Z79.01 Long term (current) use of anticoagulants; Z88.0 Allergy status to penicillin; Z88.8 Allergy status to other drugs, medicaments and biological substances
CPT/HCPCS: 36415; 84439; 84481; 80053; 85652; 82150; 82550; 83690; 84443; 85025; 86140; 81003; 86644; 86645; 70491; 99284; 96374; 96361; J1885; Q9967